=== PATIENT | female | born 1980 | race Caucasian/White ===

== ENCOUNTER 2023-10-24 14:28 | Outpatient (CLI) | payer OTHER, SELFPAY ==
--- NOTE | 2023-10-24 14:33 | US_ITS ---
WS: [id number] BILATERAL 3D TOMOSYNTHESIS DIGITAL DIAGNOSTIC MAMMOGRAPHY WITH CAD CLINICAL INFORMATION: LUMP IN L BREAST HISTORY: LEFT breast lump. Cannot feel today. COMPARISON: None. TECHNIQUE: Bilateral CC, MLO, and ML views. FINDINGS: Scattered fibroglandular densities bilaterally. No suspicious focal mass, asymmetry, calcifications, or architectural distortion. Ultrasound is pending of the previous area of palpable concern ULTRASOUND BREAST LEFT TECHNIQUE: Ultrasound left breast focused area of concern. CLINICAL INFORMATION: LUMP IN L BREAST COMPARISON: None. FINDINGS: Ultrasound LEFT breast lower inner quadrant in the area of concern. Normal underlying parenchymal tis ata. No cystic or solid lesions. No suspicious lesions of target for biopsy. Findings are benign. [facility]. US/US breast LT limited* [id number] IMPRESSION: BI-RADS: 2-Benign FOLLOW UP: 1 Year Follow-up Recommend return to annual screening mammography.
== END 2023-10-24 14:29 | disposition home or self-care (01) ==
LOC: RAD 14:29
PROVIDERS: Family Provider Nurse Practitioner Family; PCP Nurse Practitioner Family; Visit Provider Nurse Practitioner Family
DX: N63.24 Unspecified lump in the left breast, lower inner quadrant (principal); R92.323 Mammographic fibroglandular density, bilateral breasts
CPT/HCPCS: 76642; 77062; G0279

== ENCOUNTER 2024-03-26 11:27 | Outpatient (CLI) | payer OTHER, SELFPAY ==
--- NOTE | 2024-03-26 11:30 | XR_ITS ---
WS: [id number] Chest with left rib detail, 4 views, 03/26/2024 Clinical Data: acute left upper rib pain Comparison: None. Findings: The lungs show no nodules, masses, or effusions. The heart is normal. No pneumonia or pneumothorax is seen. The ribs are intact. No rib fractures seen. No subcutaneous emphysema is present. XR/XR ribs LT mn 3V w CXR1V [id number] Impression: Negative chest with left rib detail.
== END 2024-03-26 11:28 | disposition home or self-care (01) ==
LOC: RAD 11:28
PROVIDERS: Family Provider Nurse Practitioner Family; PCP Nurse Practitioner Family; Visit Provider Emergency Medicine
DX: R07.81 Pleurodynia (principal)
CPT/HCPCS: 71101; J1885

== ENCOUNTER 2024-10-04 08:16 | Day surgery (SDC) | payer OTHER, SELFPAY ==
[2024-10-04 08:30] VITALS: BP 145/101; PULSE 72; RESP 16; TEMP 36.1; O2SAT 97; BMI 42.0
--- NOTE | 2024-10-04 08:50 | W.PM.OPSUD ---
Surgery/Procedure H&P Update DATE OF PROCEDURE: October 04, 2024 DATE H&P PERFORMED: 09/20/24 H&P UPDATE INFORMATION: I have reviewed H&P completed within last 30 days, I have examined patient prior to procedure, No changes to prior documentation, Changes to prior documentation as noted here and Risks and benefits of the procedure reviewed PLANNED PROCEDURE: Operation Date: 10/04/24 09:40 Proposed Procedures p Colonoscopy [id number] G0121 Z12.11(Not Applicable) - Haile David MD
--- NOTE | 2024-10-04 08:56 | ANES.PREANE2 ---
Pre-Anesthetic Assessment Height/Weight: Height 1.63 m Weight 111.13 kg Temp Pulse Resp BP Pulse Ox O2 Del Method 97.0 F L 72 16 145/101 97 Room Air 10/04/24 08:30 10/04/24 08:30 10/04/24 08:30 10/04/24 08:30 10/04/24 08:30 10/04/24 08:30 Operation Date: 10/04/24 09:40 Proposed Procedures p Colonoscopy [id number] G0121 Z12.11(Not Applicable) - Haile David MD Familial anesthetic complications: noene Was Beta Breezy taken within 24 hours: N/A Was Clonidine taken within 24 hours: N/A Last intake: Intake Last Liquid Date 10/03/24 Last Liquid Time 23:30 Last Solid Date 10/02/24 Last Solid Time 23:00 Social No alcohol and No tobacco Exam alert, oriented x 3, clear to auscultation bilaterally and regular rate & rhythm Airway Mallampati: Class III Dentition: full Pulmonary Sleep Apnea Hepatic cirrhosis - no ascites Metabolic Diabetes Mellitus and Morbid Obesity Anesthetic Plan ASA status: 3 Anesthesia: MAC Risk of > 500 ml blood loss (7ml/kg in children): No Medications/Allergies Home Medications ?Medication ?Instructions ?Recorded ?Confirmed ?Last Taken ?Type bupropion HCl 150 mg 24 hr tablet, 150 mg PO DAILY 10/13/23 10/04/24 10/03/24 History extended release escitalopram oxalate 10 mg tablet 10 mg PO DAILY 10/13/23 10/04/24 10/03/24 History metformin 1,000 mg tablet 1,000 mg PO DAILY 10/13/23 10/04/24 10/03/24 History lisinopril 10 mg tablet 10 mg PO DAILY 09/20/24 10/04/24 10/03/24 History semaglutide (weight loss) 1.7 2.4 mg SUBCUT Q7D 09/20/24 10/04/24 09/26/24 History mg/0.75 mL subcutaneous pen injector (Anastaciovwade) cetirizine 5 mg tablet 5 mg PO DAILY 10/02/24 10/04/24 10/03/24 History Allergies Allergy/AdvReac Type Severity Reaction Status Date / Time No Known Allergies Allergy Verified 10/04/24 08:30 Current Medications Generic Name Dose Route Start Last Admin Trade Name Freq PRN Reason Stop Dose Admin Sodium Chloride 1,000 mls @ 15 mls/hr 10/04/24 08:19 10/04/24 08:48 Sodium Chloride 0.9% IV 10/05/24 08:18 15 mls/hr .Q24H PRN Administration COLONOSCOPY FLUIDS PFSH Anesthesia Social History Smoking and tobacco/nicotine status: former use of tobacco/nicotine
--- NOTE | 2024-10-04 10:00 | PC.NURSE ---
CECUM TIME 1000
[2024-10-04 10:11] VITALS: BP 109/75; PULSE 71; RESP 14; TEMP 36.9; O2SAT 92
[2024-10-04 10:35] VITALS: BP 133/92; PULSE 67; RESP 17; O2SAT 98
--- NOTE | 2024-10-04 13:49 | ANE.PACU2 ---
Inpatient post-anesthesia follow up: Airway intact: Yes Vital signs: Temperature 98.4 F Pulse Rate 67 Respiratory Rate 17 Blood Pressure 133/92 Pulse Oximetry 98 Oxygen Delivery Me thod Room Air Oxygen Flow Rate 5 Fraction of Inspir ed Oxygen Hydration adequate: Yes Nausea and vomiting: No Pain level: 1 Mental status: Baseline
== END 2024-10-04 10:49 | disposition home or self-care (01) ==
PROVIDERS: PCP Nurse Practitioner Family; Visit Provider Surgery
PROC: 0DJD8ZZ Inspection of Lower Intestinal Tract, Via Natural or Artificial Opening Endoscopic (ICD-10-PCS; CPT 45378; principal; 2024-10-04 09:40)
DX: Z12.11 Encounter for screening for malignant neoplasm of colon (principal); D12.2 Benign neoplasm of ascending colon; D12.3 Benign neoplasm of transverse colon; E11.9 Type 2 diabetes mellitus without complications; E66.01 Morbid (severe) obesity due to excess calories; Z68.41 Body mass index [BMI] 40.0-44.9, adult; Z79.899 Other long term (current) drug therapy; Z79.84 Long term (current) use of oral hypoglycemic drugs; Z79.85 Long-term (current) use of injectable non-insulin antidiabetic drugs; Z87.891 Personal history of nicotine dependence
CPT/HCPCS: 36416; 45385; 82962; 88305; J2704; J7030